=== PATIENT | male | born 1965 | race Two or more races ===

== ENCOUNTER 2020-05-31 11:30 | Emergency (ER) | payer OTHER ==
[2020-05-31] MEDS ORDERED: Sodium Chloride 0.9% 10 ML Syringe FLUSH PRN (11:55)
--- NOTE | 2020-05-31 12:31 | CT ---
Head CT Technique: Multiple axial sections through the brain were obtained. Intravenous contrast was not utilized. Comparison: No prior CT exam is available. Findings: Ventricles along with basal cisterns and sulci over the convexities are mildly prominent. Slightly prominent cisterna magna cistern is seen. No abnormal parenchymal densities are seen. No evidence of intracranial hemorrhage. No midline shift or mass-effect is appreciated. Bone window settings were reviewed which show mild mucosal thickening within the ethmoid and right sides of the sphenoid sinus which is most likely chronic. Visualized mastoid sinuses show nothing acute. No acute calvarial finding is appreciated. Impression: 1. Mild generalized atrophy. 2. Slight chronic appearing sinusitis as noted above. 3. No acute intracranial abnormality is appreciated. Note: Given the patient's symptoms, please consider MRI for further evaluation. Diagnostic code #3
--- NOTE | 2020-05-31 14:26 | MR ---
MRI brain Technique: T1 sagittal; T2, T2 FLAIR, T1 and diffusion axial; T1 FLAIR coronal images were obtained. Additional gradient echo axial and coronal images were obtained. Comparison: Prior head CT exam of 05/31/20. Findings: Ventricles along with basal cisterns and sulci over convexities are slightly prominent. No abnormal signal is seen within the brain parenchyma. Slightly prominent cisterna magna is seen which is a normal variant. Very small linear area of increased diffusion is seen within the left basal ganglia close to the posterior capsule compatible with fairly acute small infarct. No other diffusion abnormalities are seen. Impression: 1. Minimal linear signal within the basal ganglia close to the posterior capsule compatible with small area of infarct. This may be reversible as no findings are seen on the FLAIR sequence in this area. 2. Mild generalized atrophy. No additional abnormality is seen. Diagnostic code #5
--- NOTE | 2020-05-31 14:47 | EDM.PDOC ---
ED HPI GENERAL MEDICAL PROBLEM - General Chief Complaint: Neuro Symptoms/Deficits Stated Complaint: POSS STROKE Time Seen by Provider: 05/31/20 11:40 Source of Information: Reports: Patient, [employer] (Friend) History Limitations: Reports: Language Barrier - History of Present Illness INITIAL COMMENTS - FREE TEXT/NARRATIVE: The patient presents because he could not get his words and could not move his arm right. His last time known well was 8am. He got up and was doing good but around 8am he noticed he could not find his words. 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 He thought maybe his left arm was affected as well. He is better now when he comes to the ER. This has never happened to him before. He has a history of hypertension and he takes captapril 25mg by mouth but he only takes it when he feels pressure in his head or like his blood pressure is up. He quit smoking years ago. He has no other health problems. Onset: Sudden Duration: Hour(s): Severity: Moderate Improves with: Reports: None Worsens with: Reports: None Associated Symptoms: Reports: No Other Symptoms - Related Data Allergies Allergy/AdvReac Type Severity Reaction Status Date / Time No Known Allergies Allergy Verified 05/31/20 11:49 Home Meds: Home Meds captopriL [Capoten] 1 tab PO PRN 05/31/20 [History] Past Medical History Cardiovascular History: Reports: High Cholesterol, Hypertension Social & Family History - Tobacco Use Tobacco Use Status *Q: Former Tobacco User Used Tobacco, but Quit: Yes Month/Year Tobacco Last Used: 03/2013 - Caffeine Use Caffeine Use: Reports: None - Recreational Drug Use Recreational Drug Use: No ED ROS GENERAL - Review of Systems Review Of Systems: See Below Constitutional: Reports: No Symptoms HEENT: Reports: No Symptoms Respiratory: Reports: No Symptoms Cardiovascular: Reports: No Symptoms Endocrine: Reports: No Symptoms GI/Abdominal: Reports: No Symptoms : Reports: No Symptoms Musculoskeletal: Reports: No Symptoms ED EXAM, NEURO - Physical Exam Exam: See Below Exam Limited By: No Limitations General Appearance: Alert, No Apparent Distress Ears: Normal External Exam Nose: Normal Inspection Head Exam: Atraumatic, Normocephalic Neck: Normal Inspection Respiratory/Chest: No Respiratory Distress, Lungs Clear, Normal Breath Sounds Cardiovascular: Regular Rate, Rhythm, No Edema, No Murmur GI/Abdominal: Soft, Non-Tender, No Organomegaly, No Mass Neurological: Alert, No Motor/Sensory Deficits, Oriented x 3 #1 Interpretation EKG Date: 05/31/20 Time: 12:21 Rhythm: NSR Rate (Beats/Min): 70 [place]: Normal P-Wave: Present QRS: Normal ST-T: Normal QT: Normal Course - Vital Signs Last Recorded V/S: Last Vital Signs Temp 97.9 F 05/31/20 11:41 Pulse 86 05/31/20 11:41 Resp 16 05/31/20 11:41 BP 157/98 H 05/31/20 11:41 Pulse Ox 97 05/31/20 11:41 - Orders/Labs/Meds Orders: Active Orders 24 hr Category Date Time Status Cardiac Monitoring [RC] . DIRECTED Care 05/31/20 11:55 Active EKG Documentation Completion [RC] STAT Care 05/31/20 11:57 Active Peripheral IV Care [RC] . DIRECTED Care 05/31/20 11:57 Active CORONAVIRUS COVID-19 DEMIAN [MOLEC] Stat Lab 05/31/20 14:35 Received Sodium Chloride 0.9% [Saline Flush] Med 05/31/20 11:55 Active 10 ml FLUSH ASDIRECTED PRN Peripheral IV Insertion Adult [OM.PC] Stat Oth 05/31/20 11:55 Ordered Medication Orders Sodium Chloride (Saline Flush) 10 ml FLUSH ASDIRECTED PRN PRN Reason: Keep Vein Open Labs: Laboratory Tests 05/31/20 05/31/20 05/31/20 Range/Units 11:40 12:35 12:35 WBC 8.08 (4.23-9.07) K/mm3 RBC 5.36 (4.63-6.08) M/mm3 Hgb 15.9 (13.7-17.5) gm/dl Hct 47.8 (40.1-51.0) % MCV 89.2 (79.0-92.2) fl MCH 29.7 (25.7-32.2) pg MCHC 33.3 (32.2-35.5) g/dl RDW Std Deviation 42.0 (35.1-43.9) fL Plt Count 299 (163-337) K/mm3 MPV 8.5 L (9.4-12.3) fl Neut % (Auto) 54.1 (34.0-67.9) % Lymph % (Auto) 30.6 (21.8-53.1) % Ramsey % (Auto) 10.1 (5.3-12.2) % Eos % (Auto) 4.5 (0.8-7.0) Baso % (Auto) 0.5 (0.1-1.2) % Neut # (Auto) 4.37 (1.78-5.38) K/mm3 Lymph # (Auto) 2.47 (1.32-3.57) K/mm3 Ramsey # (Auto) 0.82 (0.30-0.82) K/mm3 Eos # (Auto) 0.36 (0.04-0.54) K/mm3 Baso # (Auto) 0.04 (0.01-0.08) K/mm3 PT 10.7 (9.7-12.0) SECONDS INR 1.00 APTT 28.5 (21.7-31.4) SECONDS Sodium (136-145) mEq/L Potassium (3.5-5.1) mEq/L Chloride (98-107) mEq/L Carbon Dioxide (21-32) mEq/L Anion Gap (5-15) BUN (7-18) mg/dL Creatinine (0.7-1.3) mg/dL Est Cr Clr Drug Dosing mL/min Estimated GFR (MDRD) (>60) mL/min BUN/Creatinine Ratio (14-18) Glucose (74-106) mg/dL POC Glucose 100 (70-105) mg/dL Calcium (8.5-10.1) mg/dL Total Bilirubin (0.2-1.0) mg/dL AST (15-37) U/L ALT (16-63) U/L Alkaline Phosphatase (46-116) U/L Total Protein (6.4-8.2) g/dl Albumin (3.4-5.0) g/dl Globulin gm/dL Albumin/Globulin Ratio (1-2) 05/31/20 Range/Units 12:35 WBC (4.23-9.07) K/mm3 RBC (4.63-6.08) M/mm3 Hgb (13.7-17.5) gm/dl Hct (40.1-51.0) % MCV (79.0-92.2) fl MCH (25.7-32.2) pg MCHC (32.2-35.5) g/dl RDW Std Deviation (35.1-43.9) fL Plt Count (163-337) K/mm3 MPV (9.4-12.3) fl Neut % (Auto) (34.0-67.9) % Lymph % (Auto) (21.8-53.1) % Ramsey % (Auto) (5.3-12.2) % Eos % (Auto) (0.8-7.0) Baso % (Auto) (0.1-1.2) % Neut # (Auto) (1.78-5.38) K/mm3 Lymph # (Auto) (1.32-3.57) K/mm3 Ramsey # (Auto) (0.30-0.82) K/mm3 Eos # (Auto) (0.04-0.54) K/mm3 Baso # (Auto) (0.01-0.08) K/mm3 PT (9.7-12.0) SECONDS INR APTT (21.7-31.4) SECONDS Sodium 142 (136-145) mEq/L Potassium 4.1 (3.5-5.1) mEq/L Chloride 104 (98-107) mEq/L Carbon Dioxide 26 (21-32) mEq/L Anion Gap 16.1 H (5-15) BUN 14 (7-18) mg/dL Creatinine 1.0 (0.7-1.3) mg/dL Est Cr Clr Drug Dosing 77.09 mL/min Estimated GFR (MDRD) > 60 (>60) mL/min BUN/Creatinine Ratio 14.0 (14-18) Glucose 96 (74-106) mg/dL POC Glucose (70-105) mg/dL Calcium 8.8 (8.5-10.1) mg/dL Total Bilirubin 0.3 (0.2-1.0) mg/dL AST 22 (15-37) U/L ALT 57 (16-63) U/L Alkaline Phosphatase 86 (46-116) U/L Total Protein 7.7 (6.4-8.2) g/dl Albumin 3.8 (3.4-5.0) g/dl Globulin 3.9 gm/dL Albumin/Globulin Ratio 1.0 (1-2) Meds: Medications Generic Name Dose Route Start Last Admin Trade Name Antoinette PRN Reason Stop Dose Admin Sodium Chloride 10 ml 05/31/20 11:55 Saline Flush FLUSH ASDIRECTED PRN Keep Vein Open - Re-Assessments/Exams Free Text/Narrative Re-Assessment/Exam: 05/31/20 14:58 I ordered an IV saline lock, EKG, CT of his head and labs. His last time known well was 8am. His CT looks good. His CBC and CMP look good. His troponin is negative. I was able to get him in for an MRI. The MRI shows minimal linear signal within the basal ganglia close to the posterior capsule compatible with small area of infarct. This may be reversible as no findings are seen on the FLAIR sequence in this area. Mild generalized atrophy. No additional abnormality is seen. He has no neuro deficits now. I called [facility] in [place] and talked with Dr Escalera and she accepted the patient. Departure - Departure Time of Disposition: 15:05 Disposition: DC/Tfer to Acute Hospital 02 Condition: Fair Clinical Impression: Cerebrovascular accident (CVA) Qualifiers: CVA mechanism: unspecified Qualified Code(s): I63.9 - Cerebral infarction, unspecified - Discharge Information Referrals: PCP,Not In Area [Primary Care Provider] - Forms: ED Department Discharge Sepsis Event Note (ED) - Evaluation Sepsis Screening Result: No Definite Risk - Focused Exam Vital Signs: Vital Signs Temp Pulse Resp BP Pulse Ox 05/31/20 11:41 97.9 F 86 16 157/98 H 97 - My Orders Last 24 Hours: My Active Orders 05/31/20 11:55 Cardiac Monitoring [RC] . DIRECTED Sodium Chloride 0.9% [Saline Flush] 10 ml FLUSH ASDIRECTED PRN Peripheral IV Insertion Adult [OM.PC] Stat 05/31/20 11:57 EKG Documentation Completion [RC] STAT Peripheral IV Care [RC] . DIRECTED 05/31/20 14:35 CORONAVIRUS COVID-19 DEMIAN [MOLEC] Stat - Assessment/Plan Last 24 Hours: My Active Orders 05/31/20 11:55 Cardiac Monitoring [RC] . DIRECTED Sodium Chloride 0.9% [Saline Flush] 10 ml FLUSH ASDIRECTED PRN Peripheral IV Insertion Adult [OM.PC] Stat 05/31/20 11:57 EKG Documentation Completion [RC] STAT Peripheral IV Care [RC] . DIRECTED 05/31/20 14:35 CORONAVIRUS COVID-19 DEMIAN [MOLEC] Stat
== END 2020-05-31 15:45 ==
LOC: JD.ED 11:30
DX: I63.9 Cerebral infarction, unspecified (principal); I10 Essential (primary) hypertension; Z87.891 Personal history of nicotine dependence; Z79.899 Other long term (current) drug therapy; Z20.822 Contact with and (suspected) exposure to COVID-19
CPT/HCPCS: 36415; 70450; 70450-26; 70551; 70551-26; 80053; 82962; 85025; 85610; 85730; 93005; 93010; 99284; 99285-25; U0002